=== PATIENT | female | born 1975 | race Caucasian/White ===

== ENCOUNTER 2019-02-10 18:17 | Emergency (ER) | payer OTHER ==
[2019-02-10] MEDS ORDERED: ASPIRIN 81 MG CHEWABLE TABLET ONE (19:21)
[2019-02-10 19:29] LABS: Absolute Lymphocytes (CBC) 1.9 K/uL (0.7-4.9)
[2019-02-10 19:32] LABS: Basophils % 0.4 % (0-1.3); Hematocrit 44.1 % (36.0-45.0); Lymphocytes % 33.5 % (15.3-44.8); MPV 8.3 fL (7.6-11.3); RBC Red Blood Cell Count 5.17 M/uL (3.86-4.86)
[2019-02-10 19:46] LABS: Protime INR 1.01
[2019-02-10 19:48] LABS: ALT/SGPT 20 U/L (12-78); AST/SGOT 13 U/L (15-37); Albumin 3.9 g/dL (3.4-5.0); Alkaline Phosphatase 67 U/L (45-117); BUN Blood Urea Nitrogen 14 mg/dL (7-18); Bicarbonate 26 mmol/L (21-32); Bilirubin Direct 0.1 mg/dL (0-0.2); Bilirubin Total 0.3 mg/dL (0.2-1.0); Glucose Level 88 mg/dL (74-106); Magnesium 2.1 mg/dL (1.8-2.4); NT PRO-BNP 18 pg/mL (<125); Potassium 3.7 mmol/L (3.5-5.1); Protein, Total 7.7 g/dL (6.4-8.2); Sodium Level 144 mmol/L (136-145); Troponin (Emerg Dept Use Only) < 0.02 ng/mL (0.0-0.045)
--- NOTE | 2019-02-10 20:14 | RAD REPORT ---
EXAM DESCRIPTION: RAD - Chest Single View - 02/10/2019 7:21 pm CLINICAL HISTORY: Chest pain COMPARISON: April 2018 TECHNIQUE: AP portable chest image was obtained 1917 hours . FINDINGS: Lungs are clear. Heart and vasculature are normal. No measurable pleural effusion and no p neumothorax. No acute bony abnormality seen. No acute aortic findings suspected. IMPRESSION: No acute cardiopulmonary process. No significant interval change.
[2019-02-10] MEDS ORDERED: ONDANSETRON 4 MG/2 ML VIAL ONE (21:33)
[2019-02-10] MEDS ORDERED: KETOROLAC 30 MG/ML INJ ONE (21:33)
--- NOTE | 2019-02-10 23:04 | EDPHYS ---
Physician Documentation [facility] Name: Patria Andrade Age: 43 yrs Sex: Female : 1975 Arrival Date: 02/10/2019 Time: 18:17 Bed 14 Private MD: ED Physician Sid Helms HPI: 02/10 19:05 This 43 yrs old Female presents to ER via Ambulatory with complaints of Chest cp Pain. 19:05 The patient or guardian reports chest pain that is located primarily in the anterior cp chest wall. 19:05 Onset: last night. cp 19:05 The pain radiates to the left shoulder. cp 19:05 Associated signs and symptoms: Pertinent positives: dizziness, Pertinent negatives: cp abdominal pain, cough, fever, shortness of breath, vomiting, wheezing. The chest pain is described as sharp. Duration: The patient or guardian reports a single episode, that is still ongoing, and worsening. 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 - Social history:: Smoking status: unknown. - Ebola Screening: : Patient negative for fever greater than or equal to 101.5 degrees Fahrenheit, and additional compatible Ebola Virus Disease symptoms Patient denies exposure to infectious person. ROS: 19:10 Constitutional: Negative for body aches, chills, fever, poor PO intake. cp 19:10 Eyes: Negative for injury, pain, redness, and discharge. cp 19:10 ENT: Negative for drainage from ear(s), ear pain, sore throat, difficulty swallowing, difficulty handling secretions. 19:10 Cardiovascular: Positive for chest pain, Negative for edema, palpitations. 19:10 Respiratory: Negative for cough, shortness of breath, wheezing. 19:10 Abdomen/GI: Negative for abdominal pain, vomiting, diarrhea, constipation, black/tarry stool, rectal bleeding. 19:10 Back: Negative for pain at rest, pain with movement, radiated pain. 19:10 : Negative for urinary symptoms, vaginal bleeding, vaginal discharge. 19:10 Neuro: Negative for altered mental status, dizziness, headache, syncope, weakness. 19:10 All other systems are negative. Exam: 19:00 ECG was reviewed by the Attending Physician. cp 19:15 Constitutional: The patient appears in no acute distress, alert, awake, cp non-diaphoretic, non-toxic, well developed, well nourished. 19:15 Head/Face: Normocephalic, atraumatic. cp 19:15 Eyes: Periorbital structures: appear normal, Conjunctiva: normal, no exudate, no injection, Lids and lashes: appear normal, bilaterally. 19:15 ENT: External ear(s): are unremarkable, Nose: is normal, Mouth: is normal, Posterior pharynx: is normal, airway is patent, no erythema, no exudate. 19:15 Neck: ROM/movement: is normal, is supple, without pain, no range of motions limitations, no meningismus, no nuchal rigidity. 19:15 Chest/axilla: Inspection: normal, Palpation: is normal, no crepitus, no tenderness. 19:15 Cardiovascular: Rate: normal, Rhythm: regular, Heart sounds: murmur, not appreciated, Edema: is not appreciated. 19:15 Respiratory: the patient does not display signs of respiratory distress, Respirations: normal, no use of accessory muscles, no retractions, no splinting, no tachypnea, labored breathing, is not present, Breath sounds: are clear throughout, no decreased breath sounds, no stridor, no wheezing. 19:15 Abdomen/GI: Inspection: abdomen appears normal, Bowel sounds: active, all quadrants, Palpation: abdomen is soft and non-tender, in all quadrants, rebound tenderness, is not appreciated, voluntary guarding, is not appreciated, involuntary guarding, is not appreciated. 19:15 Back: pain, is absent, ROM is normal. 19:15 Skin: no rash present. 19:15 Neuro: Orientation: to person, place \T\ time. Mentation: is normal, Motor: moves all fours, strength is normal, Sensation: is normal. 22:20 ECG was reviewed by the Attending Physician. cp Vital Signs: 18:24 BP 117 / 77; Pulse 78; Resp 24; Temp 97.8; Pulse Ox 99% ; Weight 58.06 kg; Height 5 ft. sv 3 in. (160.02 cm); 19:30 BP 116 / 75; Pulse 62; Resp 13; Pulse Ox 100% on R/A; wh 20:45 BP 110 / 80; Pulse 75; Resp 13; Pulse Ox 100% on R/A; jb4 22:22 BP 109 / 70; Pulse 61; Resp 16; Pulse Ox 100% on R/A; wh 18:24 Body Mass Index 22.67 (58.06 kg, 160.02 cm) sv MDM: 19:00 Patient medically screened. cp 23:02 The patient was given aspirin in the Emergency Department. cp 23:02 Differential diagnosis: abnormal EKG, acute myocardial infarction, acute pericarditis, cp pneumothorax, pulmonary embolus, stable angina, unstable angina. HEART Score: History: Slightly Suspicious (0), ECG: Normal (0), Age: < or = 45 years (0), Risk Factors: No Risk Factors Known (0), Troponin: < or = 1 x Normal Limit (0). Data reviewed: vital signs, nurses notes, lab test result(s), EKG, radiologic studies, plain films. 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 Special discussion: Based on the patient's history, exam, and Dx evaluation, there is no indication for emergent intervention or inpatient Tx. It is understood by the patient/guardian that if the Sx's persist or worsen they need to return immediately for re-evaluation. ED course: VSS. Pain improved with meds. Will discharge to home for continued monitoring. 02/10 19: Order name: Basic Metabolic Panel; Complete Time: 20:00 cp 02/10 20: Interpretation: Normal except: CL 111; GFR 51. cp 02/10 19: Order name: CBC with Diff; Complete Time: 20:00 cp 02/10 20: Interpretation: Normal except: RBC 5.17. cp 02/10 19: Order name: LFT's; Complete Time: 20:00 cp 02/10 19: Order name: Magnesium; Complete Time: 20:00 cp 02/10 19:09 Order name: NT PRO-BNP; Complete Time: 20:00 cp 02/10 19:09 Order name: PT-INR; Complete Time: 20:01 cp 02/10 18:55 Order name: EKG; Complete Time: 18:55 sv 02/10 19:09 Order name: Troponin (emerg Dept Use Only); Complete Time: 20:01 cp 02/10 19:09 Order name: XRAY Chest (1 view); Complete Time: 22:58 cp 02/10 22:11 Order name: Troponin (emerg Dept Use Only); Complete Time: 22:58 jb4 02/10 18:55 Order name: EKG - Nurse/Tech; Complete Time: 18:55 sv 02/10 19:09 Order name: Cardiac monitoring; Complete Time: 19:19 cp 02/10 19:09 Order name: IV Saline Lock; Complete Time: 19:19 cp 02/10 19:09 Order name: Labs collected and sent; Complete Time: 19:19 cp 02/10 19:09 Order name: O2 Per Protocol; Complete Time: 19:19 cp 02/10 19:09 Order name: O2 Sat Monitoring; Complete Time: 19:19 cp 02/10 22:11 Order name: EKG; Complete Time: 22:11 cp 02/10 22:11 Order name: EKG - Nurse/Tech; Complete Time: 22:12 cp EC:00 Rate is 87 beats/min. Rhythm is regular. MD interval is normal. QRS interval is normal. cp QT interval is normal. Interpreted by me. Reviewed by me. 22:20 Rate is 59 beats/min. Rhythm is regular. MD interval is normal. QRS interval is normal. cp QT interval is normal. T waves are Inverted in leads aVL, aVR. Interpreted by me. Reviewed by me. Administered Medications: 19:25 Drug: Aspirin Chewable Tablet 324 mg Route: PO; wh 22:12 Follow up: Response: No adverse reaction 21:43 Drug: TORadol 30 mg Route: IVP; Site: right antecubital; jb4 22:13 Follow up: Response: No adverse reaction; Pain is decreased wh 21:45 Drug: Zofran 4 mg Route: IVP; Site: right antecubital; jb4 22:13 Follow up: Response: No adverse reaction; Nausea is decreased Disposition: 02/11 07:48 Co-signature as Attending Physician, Sid Helms MD. gs Disposition: 02/10/19 23:03 Discharged to Home. Impression: Chest pain, unspecified. - Condition is Stable. - Discharge Instructions: Nonspecific Chest Pain, Aspirin and Your Heart. - Medication Reconciliation Form, Thank You Letter, Antibiotic Education, Prescription Opioid Use form. - Follow up: Jarod Harvey MD; When: 2 - 3 days; Reason: Recheck today's complaints. - Problem is new. - Symptoms have improved. Signatures: Dispatcher [employer] [facility] Hawa Brown, RN RN Poncho Serna PA PA cp Bryson, James, RN RN jb4 Krishna Topete Sid Helms MD MD Corrections: (The following items were deleted from the chart) 02/10 22:20 22:11 TROPONIN I+C.LAB.BRZ ordered. [facility] 23:20 23:03 02/10/2019 23:03 Discharged to Home. Impression: Chest pain, unspecified. Condition is Stable. Forms are Medication Reconciliation Form, Thank You Letter, Antibiotic Education, Prescription Opioid Use. Follow up: Jarod Harvey; When: 2 - 3 days; Reason: Recheck today's complaints. Problem is new. Symptoms have improved. cp
--- NOTE | 2019-02-10 23:04 | ER ---
Nurse's Notes [facility] Name: Patria Andrade Age: 43 yrs Sex: Female : 1975 Arrival Date: 02/10/2019 Time: 18:17 Bed 14 Private MD: Diagnosis: Chest pain, unspecified Presentation: 02/10 18:24 Transition of care: patient was not received from another setting of care. Onset of sv symptoms was February 09, 2019. Risk Assessment: Do you want to hurt yourself or someone else? Patient reports no desire to harm self or others. Care prior to arrival: None. 18:24 Acuity: DONALD 2 sv 18:24 Method Of Arrival: Ambulatory sv 18:24 Presenting complaint: Patient states: midsternal chest pain that radiates to the left sv shoulder started yesterday and today started having SOB, dizziness. Initial Sepsis Screen: Does the patient meet any 2 criteria? No. Patient's initial sepsis screen is negative. Does the patient have a suspected source of infection? No. Patient's initial sepsis screen is negative. 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 - Social history:: Smoking status: unknown. - Ebola Screening: : Patient negative for fever greater than or equal to 101.5 degrees Fahrenheit, and additional compatible Ebola Virus Disease symptoms Patient denies exposure to infectious person. Screenin:05 Abuse screen: Denies threats or abuse. Nutritional screening: No deficits noted. Tuberculosis screening: No symptoms or risk factors identified. Fall Risk IV access (20 points). Total Negron Fall Scale indicates No Risk (0-24 pts). Assessment: 19:05 General: Appears in no apparent distress. uncomfortable, Behavior is calm, cooperative, jb4 appropriate for age. Pain: Complains of pain in left of the middle of the chest. Pain radiates to across the chest. Pain currently is 6 out of 10 on a pain scale. Quality of pain is described as stabbing, Pain began 1 day ago. Is intermittent. Neuro: Level of Consciousness is awake, alert, obeys commands, Oriented to person, place, time, situation. Cardiovascular: Patient's skin is warm and dry. Rhythm is sinus rhythm. Respiratory: Reports shortness of breath Airway is patent Respiratory effort is even, unlabored, Respiratory pattern is regular, symmetrical. GI: Reports nausea. : No deficits noted. No signs and/or symptoms were reported regarding the genitourinary system. EENT: No deficits noted. No signs and/or symptoms were reported regarding the EENT system. Derm: Skin is intact, Skin is pink, warm \T\ dry. Musculoskeletal: Circulation, motion, and sensation intact. Range of motion: intact in all extremities. 20:00 Reassessment: Patient appears in no apparent distress at this time. No changes from 4 previously documented assessment. Patient and/or family updated on plan of care and expected duration. Pain level reassessed. Patient is alert, oriented x 3, equal unlabored respirations, skin warm/dry/pink. PT refusing pain and nausea medications at this time. 20:51 Reassessment: Patient appears in no apparent distress at this time. Patient and/or jb4 family updated on plan of care and expected duration. Pain level reassessed. Patient is alert, oriented x 3, equal unlabored respirations, skin warm/dry/pink. 22:22 Reassessment: Patient appears in no apparent distress at this time. No changes from previously documented assessment. Patient and/or family updated on plan of care and expected duration. Pain level reassessed. Patient is alert, oriented x 3, equal unlabored respirations, skin warm/dry/pink. Report received from Luke DAVIS Patient denies pain at this time. Patient states feeling better. Vital Signs: 18:24 BP 117 / 77; Pulse 78; Resp 24; Temp 97.8; Pulse Ox 99% ; Weight 58.06 kg; Height 5 ft. sv 3 in. (160.02 cm); 19:30 BP 116 / 75; Pulse 62; Resp 13; Pulse Ox 100% on R/A; wh 20:45 BP 110 / 80; Pulse 75; Resp 13; Pulse Ox 100% on R/A; jb4 22:22 BP 109 / 70; Pulse 61; Resp 16; Pulse Ox 100% on R/A; wh 18:24 Body Mass Index 22.67 (58.06 kg, 160.02 cm) sv ED Course: 18:17 Patient arrived in ED. as 18:20 EKG completed in triage. Results shown to MD. sv 18:24 Triage completed. sv 18:25 Arm band placed on. sv 18:42 Patient has correct armband on for positive identification. Placed in gown. Bed in low mh5 position. Call light in reach. Side rails up X 1. cardiac monitor technician on. Pulse ox on. NIBP on. 19:00 Poncho Rao PA is PHCP. cp 19:00 Sid Helms MD is Attending Physician. cp 19:05 Initial lab(s) drawn, by il, sent to lab. Inserted saline lock: 20 gauge in right wh antecubital area, using aseptic technique. Blood collected. Patient maintains SpO2 saturation greater than 95% on room air. 19:17 Krishna Topete is Primary Nurse. 19:21 XRAY Chest (1 view) In Process Unspecified. EDCO 19:25 PT-INR Sent. 19:25 NT PRO-BNP Sent. 19:25 Basic Metabolic Panel Sent. 19:25 CBC with Diff Sent. 19:25 LFT's Sent. 19:25 Magnesium Sent. 19:38 Elie Branch, RN is Primary Nurse. jb4 20:45 No provider procedures requiring assistance completed. jb4 23:03 Jarod Harvey MD is Referral Physician. cp 23:18 IV discontinued, intact, bleeding controlled, No redness/swelling at site. Administered Medications: 19:25 Drug: Aspirin Chewable Tablet 324 mg Route: PO; 22:12 Follow up: Response: No adverse reaction 21:43 Drug: TORadol 30 mg Route: IVP; Site: right antecubital; jb4 22:13 Follow up: Response: No adverse reaction; Pain is decreased 21:45 Drug: Zofran 4 mg Route: IVP; Site: right antecubital; jb4 22:13 Follow up: Response: No adverse reaction; Nausea is decreased Outcome: 23:03 Discharge ordered by . cp 23:18 Discharged to home ambulatory. 23:18 Condition: good 23:18 Discharge instructions given to patient, Instructed on discharge instructions, follow up and referral plans. POC unspecific chest pain Demonstrated understanding of instructions, follow-up care, POC 23:20 Patient left the ED. Signatures: Dispatcher [employer] [facility] Hawa Brown, RN Tory Dill as Poncho Rao PA PA cp Bryson, James, RN RN [facility] Lauren Morales [facility] Krishna Topete Corrections: (The following items were deleted from the chart) 20:51 19:05 General: Appears in no apparent distress. uncomfortable, Behavior is calm, jb4 cooperative, appropriate for age, : 19:05 Pain: Complains of pain in left of the middle of the chest. Pain radiates to jb4 across the chest. Pain currently is 6 out of 10 on a pain scale. Quality of pain is described as stabbing, Pain began 1 day ago. Is intermittent, : 19:05 Neuro: Level of Consciousness is awake, alert, obeys commands, Oriented to [facility] person, place, time, situation, : 19:05 Cardiovascular: Patient's skin is warm and dry. Rhythm is sinus rhythm [facility] : 19:05 Respiratory: Reports shortness of breath at rest Airway is patent Respiratory 4 effort is even, unlabored, Respiratory pattern is regular, symmetrical, Breath sounds are clear bilaterally. : 19:05 GI: Reports nausea, [facility] : 19:05 : No deficits noted. No signs and/or symptoms were reported regarding the jb4 genitourinary system. : 19:05 EENT: No deficits noted. No signs and/or symptoms were reported regarding the jb4 EENT system. : 19:05 Derm: Skin is intact, Skin is pink, warm \T\ dry. [facility] :51 19:05 Musculoskeletal: Circulation, motion, and sensation intact. Range of motion: jb4 intact in all extremities,
[2019-02-10 23:35] VITALS: TEMP 97.8
[2019-02-10 23:36] VITALS: O2SAT 100
[2019-02-10 23:39] VITALS: BP 109/70
--- NOTE | 2019-02-11 11:27 | EKG ---
Test Date: 2019-02-10 Test Time: 22:10:51 Varnish Blender: MG MEASUREMENT RESULTS: Intervals: Rate: 59 MO: 194 QRSD: 76 QT: 420 QTc: 415 Freeman: P: 74 MO: 194 QRS: 89 T: 86 INTERPRETIVE STATEMENTS: Sinus bradycardia with sinus arrhythmia Otherwise normal ECG Compared to ECG 02/10/2019 18:20:36 Sinus rhythm no longer present Electronically Signed On 02-11-19 11:26:43 CDT by Jarod Harvey
--- NOTE | 2019-02-11 11:28 | EKG ---
Test Date: 2019-02-10 Test Time: 18:20:36 Hospital Internship: [facility] MEASUREMENT RESULTS: Intervals: Rate: 87 AL: 160 QRSD: 76 QT: 360 QTc: 433 [place]: P: 77 AL: 160 QRS: 86 T: 79 INTERPRETIVE STATEMENTS: Normal sinus rhythm Normal ECG No previous ECG available for comparison Electronically Signed On 02-11-19 11:27:38 CDT by Jarod Harvey
== END 2019-02-10 23:20 | disposition home or self-care (01) ==
LOC: ER 18:17
DX: R07.9 Chest pain, unspecified (principal); I45.6 Pre-excitation syndrome; Z88.5 Allergy status to narcotic agent
CPT/HCPCS: 93005 ×2; 85025; 80048; 36415; 83735; 85610; 80076; 84484 ×2; 83880; 71045; 96375; 96374; 99285; J2405

== ENCOUNTER 2020-08-10 23:59 | Emergency (ER) | payer OTHER ==
--- OUTSIDE RECORDS SUMMARY | 2020-08-11 00:02 | XMS REPORT | Continuity of Care Document ---
:1975 Author Organization [facility] t Address [address] [place] [address] [address] [place] [address] Care Team Providers Name Role Phone Asked, Pcp Primary Care Physician Unavailable Asiya VASQUEZ, Gene Attending Clinician Payers Payer Name Policy Type Policy Number Effective Date Expiration Date S ource Problems This patient has no known problems. Allergies, Adverse Reactions, Alerts Allergy Allergy Status Severity Reaction(s) Onset Inactive Treating Comm ents Source Name Type Date Date Clinician Divine Jackson Active jerking [place] on ne ty to 4-04 [facility] adverse 00:00: st reaction 00 s to drug No Known DA Active U 2002-05 [facility] Other 0[facility]23 [place] [facility] No Known DA Active U 2002-05 [facility] Contrast 0-23 [place] [facility] No Known DA Active U 2002-05 [facility] Drug 0-23 [place] [facility] No Known DA Active U 2002-05 [facility] Food 0-23 [place] [facility] No Known DA Active U [facility]- [facility] Family History Family Member Diagnosis Comments Start Date Stop Date Source Natural father Clotting disorder Azul jeremy Sims Natural mother Diabetes Gregorio Me thodist Natural mother Heart disease Jg Sims Paternal grandmother Arrhythmia Boris Sims Social History Social Habit Start Date Stop Date Quantity Comments Source Tobacco use and 2017-08-07 2017-08-07 Never used Jg Garcia ethodist exposure 00:00:00 00:00:00 Alcohol intake 2017-08-07 2017-08-07 Current Jg Alegria thodist 00:00:00 00:00:00 non-drinker of alcohol (finding) Sex [birth year] Jg colonodist 00:00:00 00:00:00 Smoking Status Start Date Stop Date Source Never smoker Jg Valdezis t Medications Ordered Filled Start Stop Current Ordering Indication Dosage Frequency Signature Comments Components Source Medication Medication Date Date Medication? Clinician (SIG) Name Name topiramate 2018-0 Yes 100mg Q.5D Take 100 [place] (TOPAMAX) 4-04 mg by Method[facility] 100 MG 17:20: mouth 2 st tablet 09 (two) times a day. clonAZEPAM 2018-0 Yes .5mg Q.5D Take 0.5 Azul ston (KlonoPIN) 4-04 mg by Methodi 0.5 MG 17:20: mouth 2 st tablet 09 (two) times a day as needed for seizures. Procedures This patient has no known procedures. Encounters Start End Encounter Admission Attending Care Care Encounter Source Date/Time Date/Time Type Type Clinicians Facility Department ID 2020-04-18 2020-04-18 [place] [id number] 00:00:00 00:00:00 Carroll Burgos [id number] Juan [id number] Patsy [id number] [facility] 092 [facility] 2020-04-06 2020-04-06 [facility] [id number] 14:17:58 15:17:14 Visit Carroll Burgos [id number] Juan [id number] Patsy [id number] [facility] Results This patient has no known results.
[2020-08-11 00:17] LABS: Basophils % 0.4 % (0-1.3); Hematocrit 39.9 % (36.0-45.0); Lymphocytes % 45.6 % (15.3-44.8); MPV 8.1 fL (7.6-11.3); RBC Red Blood Cell Count 4.71 M/uL (3.86-4.86)
[2020-08-11] MEDS ORDERED: NA CHLORIDE 0.9% 1,000 ML ONE (00:29)
[2020-08-11] MEDS ORDERED: ONDANSETRON 4 MG/2 ML VIAL ONE (00:29)
[2020-08-11 00:33] LABS: ALT/SGPT 27 U/L (12-78); AST/SGOT 15 U/L (15-37); Albumin 3.7 g/dL (3.4-5.0); Alkaline Phosphatase 64 U/L (45-117); BUN Blood Urea Nitrogen 13 mg/dL (7-18); Bicarbonate 25 mmol/L (21-32); Bilirubin Direct < 0.1 mg/dL (0-0.2); Bilirubin Total 0.4 mg/dL (0.2-1.0); Glucose Level 87 mg/dL (74-106); Lipase 151 U/L (73-393); Potassium 3.2 mmol/L (3.5-5.1); Protein, Total 7.2 g/dL (6.4-8.2); Sodium Level 142 mmol/L (136-145)
[2020-08-11] MEDS ORDERED: MORPHINE 4 MG/ML SYR ONE (00:35)
[2020-08-11] MEDS ORDERED: PROMETHAZINE INJ 25 MG/ML AMP ONE (01:13)
[2020-08-11] MEDS ORDERED: HYDROMORPHONE HCL 1 MG/ML INJ ONE (01:13)
[2020-08-11] MEDS ORDERED: KETOROLAC 30 MG/ML INJ ONE (02:50)
--- NOTE | 2020-08-11 03:11 | EDPHYS ---
Physician Documentation [facility] Name: Patria Andrade Age: 45 yrs Sex: Female : 1975 Arrival Date: 08/11/2020 Time: 00:01 Bed 5 Private MD: ED Physician Gwyn Doty HPI: 08/11 01:25 This 45 yrs old Female presents to ER via EMS with complaints of Flank Pain. mh7 01:25 The patient complains of pain in the right flank. The pain radiates to the abdomen. mh7 Onset: The symptoms/episode began/occurred last night. Modifying factors: The symptoms are alleviated by nothing. the symptoms are aggravated by nothing. Associated signs and symptoms: Pertinent positives: nausea, vomiting, Pertinent negatives: diarrhea, dizziness, dysuria, fever, urinary frequency, headache, hematuria, pain radiating to the lower extremities. Severity of pain: At its worst the pain was moderate today, in the emergency department the pain is unchanged. 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 - Social history:: Smoking status: Patient denies any tobacco usage or history of. ROS: 01:25 Constitutional: Negative for fever, chills, and weight loss, Eyes: Negative for injury, mh7 pain, redness, and discharge, ENT: Negative for injury, pain, and discharge, Neck: Negative for injury, pain, and swelling, Cardiovascular: Negative for chest pain, palpitations, and edema, Respiratory: Negative for shortness of breath, cough, wheezing, and pleuritic chest pain, : Negative for injury, bleeding, discharge, and swelling, MS/Extremity: Negative for injury and deformity, Skin: Negative for injury, rash, and discoloration, Neuro: Negative for headache, weakness, numbness, tingling, and seizure, Psych: Negative for depression, anxiety, suicide ideation, homicidal ideation, and hallucinations, Allergy/Immunology: Negative for hives, rash, and allergies, Endocrine: Negative for neck swelling, polydipsia, polyuria, polyphagia, and marked weight changes, Hematologic/Lymphatic: Negative for swollen nodes, abnormal bleeding, and unusual bruising. Exam: 01:25 Head/Face: Normocephalic, atraumatic. Eyes: Pupils equal round and reactive to light, mh7 extra-ocular motions intact. Lids and lashes normal. Conjunctiva and sclera are non-icteric and not injected. Cornea within normal limits. Periorbital areas with no swelling, redness, or edema. Neck: Trachea midline, no thyromegaly or masses palpated, and no cervical lymphadenopathy. Supple, full range of motion without nuchal rigidity, or vertebral point tenderness. No Meningismus. Chest/axilla: Normal chest wall appearance and motion. Nontender with no deformity. No lesions are appreciated. Cardiovascular: Regular rate and rhythm with a normal S1 and S2. No gallops, murmurs, or rubs. Normal PMI, no JVD. No pulse deficits. Respiratory: Lungs have equal breath sounds bilaterally, clear to auscultation and percussion. No rales, rhonchi or wheezes noted. No increased work of breathing, no retractions or nasal flaring. 01:25 Skin: Warm, dry with normal turgor. Normal color with no rashes, no lesions, and no evidence of cellulitis. MS/ Extremity: Pulses equal, no cyanosis. Neurovascular intact. Full, normal range of motion. Neuro: Awake and alert, GCS 15, oriented to person, place, time, and situation. Cranial nerves II-XII grossly intact. Motor strength 5/5 in all extremities. Sensory grossly intact. Cerebellar exam normal. Normal gait. Psych: Awake, alert, with orientation to person, place and time. Behavior, mood, and affect are within normal limits. 01:25 Constitutional: The patient appears alert, awake, uncomfortable. 01:25 Abdomen/GI: Inspection: abdomen appears normal, Bowel sounds: normal, in all quadrants, Palpation: mild abdominal tenderness, in the suprapubic area and right lower quadrant, Rectal exam: the exam is deferred, because of patient request, Indicators: McBurney's point is not tender, Alexander's sign is negative, Rovsing's sign is negative, Obturator sign is negative, Psoas sign is negative, Liver: no appreciated palpable abnormalities, Hernia: not appreciated. 01:25 Back: ROM is painful, with all movement, normal spinal alignment noted, CVA tenderness, that is moderate, is noted on the right, vertebral tenderness, is not appreciated, muscle spasm, is not present. Vital Signs: 00:04 BP 124 / 99; Pulse 83; Resp 16; Temp 98.2; Pulse Ox 99% on R/A; rv 00:11 Weight 68.04 kg; Height 5 ft. 3 in. (160.02 cm); Pain 5/10; rr5 01:10 BP 105 / 71; Pulse 86; Resp 16; Pulse Ox 96% on R/A; rv 03:37 BP 99 / 63; Pulse 71; Resp 18; Temp 97.7; Pulse Ox 98% on R/A; mg2 00:11 Body Mass Index 26.57 (68.04 kg, 160.02 cm) rr5 MDM: 03:09 Differential diagnosis: nephrolithiasis, pyelonephritis, UTI, diverticulitis. Data [facility] reviewed: vital signs, nurses notes, lab test result(s), CBC, electrolytes, urinalysis, UPT: negative radiologic studies, CT scan. Data interpreted: Pulse oximetry: on room air is 96 %. Interpretation: normal. Counseling: I had a detailed discussion with the patient and/or guardian regarding: the historical points, exam findings, and any diagnostic results supporting the discharge/admit diagnosis, lab results, radiology results, the need for outpatient follow up, a urologist, to return to the emergency department if symptoms worsen or persist or if there are any questions or concerns that arise at home. Response to treatment: the patient's symptoms have markedly improved after treatment. 03:10 Patient medically screened. [facility] 08/11 00:02 Order name: Basic Metabolic Panel; Complete Time: 00:45 mg2 08/11 00:02 Order name: CBC with Diff; Complete Time: 00:45 mg2 08/11 00:02 Order name: Hepatic Function; Complete Time: 00:45 mg2 08/11 00:02 Order name: Lipase; Complete Time: 00:45 mg2 08/11 00:54 Order name: CT Stone Protocol [facility] 08/11 00:02 Order name: IV Saline Lock; Complete Time: 00:02 mg2 08/11 00:02 Order name: Labs collected and sent; Complete Time: 00:02 mg2 Administered Medications: 00:50 Drug: morphine 4 mg Route: IVP; Site: right antecubital; mg2 02:03 Follow up: Response: No adverse reaction mg2 00:50 Drug: Zofran (Ondansetron) 4 mg Route: IVP; Site: right antecubital; mg2 02:03 Follow up: Response: No adverse reaction mg2 00:50 Drug: NS 0.9% 1000 ml Route: IV; Rate: 1000 ml; Site: right antecubital; mg2 02:38 Follow up: IV Status: Completed infusion; IV Intake: 1000ml rv 01:04 Drug: Phenergan 12.5 mg Route: IVP; Site: right antecubital; rv 02:03 Follow up: Response: No adverse reaction mg2 01:05 Drug: Dilaudid (HYDROmorphone) 1 mg Route: IVP; Site: right antecubital; rv 02:04 Follow up: Response: No adverse reaction mg2 02:34 Drug: TORadol 30 mg Route: IVP; Site: right antecubital; rv 03:28 Follow up: Response: No adverse reaction mg2 Disposition: 08/11/20 03:10 Discharged to Home. Impression: Ureterolithiasis. - Condition is Stable. - Discharge Instructions: Kidney Stones, [id number]. - Prescriptions for Zofran ODT 4 mg Oral tablet,disintegrating - place 1 tablet by TRANSLINGUAL route every 8 hours As needed; 10 tablet. ketorolac 10 mg Oral tablet - take 1 tablet by ORAL route every 8 hours As needed not to exceed 40 mg in 24hrs; 12 tablet. Tylenol- Codeine #3 300-30 mg Oral Tablet - take 2 tablets by ORAL route every 6 hours As needed; 20 tablet. Flomax 0.4 mg Oral Capsule, Sust. Release 24 hr - take 1 capsule by ORAL route once daily 1/2 hour following the same meal each day; 7 capsule. - Medication Reconciliation Form, Thank You Letter, Antibiotic Education, Prescription Opioid Use form. - Follow up: Private Physician; When: 1 - 2 days; Reason: Worsening of condition, Recheck today's complaints, Continuance of care, Re-evaluation by your physician. Follow up: Jamal Payan MD; When: 1 - 2 days; Reason: Worsening of condition, Recheck today's complaints. - Problem is new. - Symptoms have improved. Signatures: Dispatcher [employer] EDMS Anmol Yu RN RN [facility] Bertram Nayak RN RN Gwyn Mcdonald MD MD mh7 Corrections: (The following items were deleted from the chart) 03:39 03:10 08/11/2020 03:10 Discharged to Home. Impression: Ureterolithiasis. Condition is mg2 Stable. Forms are Medication Reconciliation Form, Thank You Letter, Antibiotic Education, Prescription Opioid Use. Follow up: Private Physician; When: 1 - 2 days; Reason: Worsening of condition, Recheck today's complaints, Continuance of care, Re-evaluation by your physician. Follow up: Jamal Payan; When: 1 - 2 days; Reason: Worsening of condition, Recheck today's complaints. Problem is new. Symptoms have improved. mh7
--- NOTE | 2020-08-11 03:11 | ER ---
Nurse's Notes [facility] Name: Patria Andrade Age: 45 yrs Sex: Female : 1975 Arrival Date: 08/11/2020 Time: 00:01 Bed 5 Private MD: Diagnosis: Ureterolithiasis Presentation: 08/11 00:04 Coronavirus screen: Client denies travel out of the [place] in the last 14 days. Ebola rv Screen: No symptoms or risks identified at this time. Initial Sepsis Screen: Does the patient meet any 2 criteria? No. Patient's initial sepsis screen is negative. Does the patient have a suspected source of infection? No. Patient's initial sepsis screen is negative. Risk Assessment: Do you want to hurt yourself or someone else? Patient reports no desire to harm self or others. Onset of symptoms was August 11, 2020. 00:04 Acuity: DONALD 3 rv 00:04 Method Of Arrival: EMS: [facility] rv 00:05 Chief complaint: EMS states: RIGHT FLANK PAIN STARTED EARLIER TODAY, RADIATING TO mg2 ABDOMEN, WITH NAUSEA. 00:05 Care prior to arrival: Medication(s) given: Tylenol, 1000 mg, zofran 4 mg, fentanyl mg2 100/iv. Triage Assessment: 00:02 General: Appears uncomfortable, Behavior is calm, cooperative. Pain: Complains of pain rv in right flank. Neuro: Level of Consciousness is awake, alert, obeys commands, Oriented to person, place, time, situation. Cardiovascular: Patient's skin is warm and dry. Respiratory: Airway is patent Respiratory effort is even, unlabored, Breath sounds are clear bilaterally. GI: Abdomen is round non-distended. :. 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 - Social history:: Smoking status: Patient denies any tobacco usage or history of. Screenin:03 Abuse screen: Denies threats or abuse. Denies injuries from another. Nutritional rv screening: No deficits noted. Tuberculosis screening: No symptoms or risk factors identified. Fall Risk None identified. Assessment: 00:02 Reassessment: see triage assessment. mg2 Vital Signs: 00:04 BP 124 / 99; Pulse 83; Resp 16; Temp 98.2; Pulse Ox 99% on R/A; rv 00:11 Weight 68.04 kg; Height 5 ft. 3 in. (160.02 cm); Pain 5/10; rr5 01:10 BP 105 / 71; Pulse 86; Resp 16; Pulse Ox 96% on R/A; rv 03:37 BP 99 / 63; Pulse 71; Resp 18; Temp 97.7; Pulse Ox 98% on R/A; mg2 00:11 Body Mass Index 26.57 (68.04 kg, 160.02 cm) rr5 ED Course: 00:01 Patient arrived in ED. rv 00:01 Anmol Yu, SUSAN is Primary Nurse. mg2 00:03 Arm band placed on right wrist. Patient placed in the treatment room, on a stretcher, rv Patient notified of wait time. 00:03 Maintain EMS IV. Dressing intact. Good blood return noted. Site clean \T\ dry. Gauge \T\ rv site: g20 RAC. 00:05 Triage completed. rv 00:06 Patient has correct armband on for positive identification. Pulse ox on. NIBP on. rv 00:09 No provider procedures requiring assistance completed. mg2 00:18 Gwyn Doty MD is Attending Physician. mh7 01:47 CT Stone Protocol In Process Unspecified. EDMS 03:10 Jamal Payan MD is Referral Physician. mh7 03:37 IV discontinued, intact, bleeding controlled, No redness/swelling at site. Pressure mg2 dressing applied. Administered Medications: 00:50 Drug: morphine 4 mg Route: IVP; Site: right antecubital; mg2 02:03 Follow up: Response: No adverse reaction mg2 00:50 Drug: Zofran (Ondansetron) 4 mg Route: IVP; Site: right antecubital; mg2 02:03 Follow up: Response: No adverse reaction mg2 00:50 Drug: NS 0.9% 1000 ml Route: IV; Rate: 1000 ml; Site: right antecubital; mg2 02:38 Follow up: IV Status: Completed infusion; IV Intake: 1000ml rv 01:04 Drug: Phenergan 12.5 mg Route: IVP; Site: right antecubital; rv 02:03 Follow up: Response: No adverse reaction mg2 01:05 Drug: Dilaudid (HYDROmorphone) 1 mg Route: IVP; Site: right antecubital; rv 02:04 Follow up: Response: No adverse reaction mg2 02:34 Drug: TORadol 30 mg Route: IVP; Site: right antecubital; rv 03:28 Follow up: Response: No adverse reaction mg2 Intake: 02:38 IV: 1000ml; Total: 1000ml. rv Outcome: 03:10 Discharge ordered by . 7 03:38 Discharged to home via wheelchair, with family. mg2 03:38 Condition: stable 03:38 Discharge instructions given to patient, family, Instructed on discharge instructions, follow up and referral plans. medication usage, Demonstrated understanding of instructions, follow-up care, medications, Prescriptions given X 3. 03:38 Discharged to home ambulatory, with family. rv 03:38 Condition: improved 03:38 Discharge instructions given to patient. 03:39 Patient left the ED. mg2 Signatures: Dispatcher [employer] EDMS Anmol Yu RN RN mg2 Bertram Nayak RN RN rv Frandy Allen RN RN rr5 Gwyn Doty MD MD 7 Corrections: (The following items were deleted from the chart) 00:10 00:05 Chief complaint: EMS states: LEFT FLANK PAIN STARTED EARLIER TODAY, RADIATING TO mg2 ABDOMEN, WITH NAUSEA. rv
[2020-08-11 14:51] VITALS: BP 99/63; TEMP 97.7; O2SAT 98
--- NOTE | 2020-08-13 10:51 | RAD REPORT ---
EXAM DESCRIPTION: CT - Stone Protocol - 08/11/2020 6:21 am CLINICAL HISTORY: The patient is 45 years old and is Female; FLANK PAIN TECHNIQUE: Axial computed tomography images of the abdomen and pelvis without intravenous contrast. Sagittal and coronal reformatted images were created and reviewed. This CT exam was performed usi ng one or more of the following dose reduction techniques: automated exposure control, adjustment o f the mA and/or kV according to patient size, and/or use of iterative reconstruction technique. COMPARISON: No relevant prior studies available. FINDINGS: LUNG BASES: Unremarkable. No mass. No consolidation. ABDOMEN: LIVER: Homogeneous without focal mass. GALLBLADDER AND BILE DUCTS: Surgical clips are present in the right upper quadrant, consistent w ith previous cholecystectomy. PANCREAS: Unremarkable. No ductal dilation. SPLEEN: Unremarkable. ADRENALS: Unremarkable. No mass. KIDNEYS AND URETERS: Mild/moderate right hydroureteronephrosis is present secondary to a 5 mm ri ght UVJ calculus. Edema of the right kidney with perinephric and periureteral stranding is present. The left kidney is normal. STOMACH AND BOWEL: The stomach is distended with food contents and air. The small bowel is liyah l in caliber. Stool is present throughout colon. There is no mucosal thickening or evidence of bowel obstruction. A few scattered colonic diverticula are noted without surrounding inflammation. PELVIS: APPENDIX: The appendix is normal in caliber without surrounding inflammation. BLADDER: The bladder is moderately distended. REPRODUCTIVE: Unremarkable as visualized. ABDOMEN and PELVIS: INTRAPERITONEAL SPACE: Unremarkable. No free air. No significant fluid collection. BONES/JOINTS: No acute fracture. SOFT TISSUES: The soft tissues are normal. VASCULATURE: Unremarkable. No abdominal aortic aneurysm. LYMPH NODES: Unremarkable. No enlarged lymph nodes. IMPRESSION: Mild/moderate right hydroureteronephrosis is present secondary to a 5 mm right UVJ calcu christopher. Electronically signed by: Marine Mullins MD 08/11/2020 2:00 AM CDT Due to temporary technical issues with the PACS/Fluency reporting system, reports are being signed by the in house radiologist without review as a courtesy to ensure prompt reporting. The interpreting r adiologist is fully responsible for the content of the report.
== END 2020-08-11 03:39 | disposition home or self-care (01) ==
LOC: ER 23:59
DX: N13.2 Hydronephrosis with renal and ureteral calculous obstruction (principal)
CPT/HCPCS: 85025; 80048; 36415; 80076; 83690; 76377; 74176; J2550; J1170; J7030; J2405; 96361; 96374; 96375; 99284